=== PATIENT | female | born 1970 | race Caucasian/White ===

== ENCOUNTER → 2017-07-08 16:54 | Outpatient (CLI) | payer MEDICAID, SELFPAY ==
[2017-07-08 17:16] VITALS: BMI 25.2
== END ==
PROVIDERS: PCP Internal Medicine Adolescent Medicine; Visit Provider Nurse Practitioner Family
DX: Z23 Encounter for immunization (principal)
CPT/HCPCS: 90686

== ENCOUNTER → 2018-06-18 12:04 | Outpatient (CLI) | payer MEDICAID, SELFPAY ==
--- NOTE | 2018-06-18 12:08 | XR_ITS ---
EXAM: XR lumbar spine 2-3V HISTORY: ITS.REASON: back pain ORDERING PHYSICIAN: Jennifer Moore PATIENT AGE: 48 years COMPARISON: None FINDINGS: Mild levoscoliosis of the lower lumbar spine. Degenerative disc disease is present at L2 L3 L3 L4 L4 L5 and L5-S1. No fracture or dislocation. No lytic or blastic change. There is partial lumbarization of the S1 segment on the left. IMPRESSION: 1. Lumbar scoliosis with degenerative disc disease
[2018-06-18 12:59] LABS: Basophils % 0.4 % (0.1-2.0); Hematocrit 40.7 % (37.0-47.0); Hemoglobin 13.1 g/dL (12.2-16.2); Lymphocytes # 1.5 K/mm3 (0.7-4.5); Lymphocytes % 34.3 % (10-50); Mean Corpuscular HGB Conc 32.2 g/dL (31.8-35.4); Mean Corpuscular Hemoglobin 29.4 pg (27.0-31.2); Mean Corpuscular Volume 91.5 fl (81-99); Monocytes # 0.2 K/mm3 (0.1-1.0); Monocytes % 5.1 % (1.7-9.3); Neutrophils # 2.7 K/mm3 (1.8-7.8); Neutrophils % 59.2 % (37.0-80.0); Platelet Count 175 K/mm3 (142-424); Red Blood Count 4.45 M/mm3 (4.20-5.40); Red Cell Distribution Width 13.2 % (11.5-17.5); White Blood Count 4.5 K/mm3 (4.8-10.8)
[2018-06-18 13:06] LABS: Alanine Aminotransferase 22 U/L (12-78); Albumin Level 3.7 gm/dL (3.4-5.0); Albumin/Globulin Ratio 1.1 (1.1-1.8); Alkaline Phosphatase 46 U/L (46-116); Anion Gap 12.6 mEq/L (5-15); Aspartate Amino Transferase 14 U/L (15-37); Bilirubin,Total 0.7 mg/dL (0.2-1.0); Blood Urea Nitrogen 11 mg/dL (7-18); Calcium 8.6 mg/dL (8.5-10.1); Carbon Dioxide 26 mmol/L (21.0-32.0); Chloride 102 mmol/L (98-107); Chol/HDL Ratio 2.1 (1-3.5); Cholesterol 165 mg/dL (140-200); Creatinine,Serum 0.73 mg/dL (0.55-1.02); Estimated Glomerular Filt Rate 86 ml/min (>60); GFR (African American) 104 ML/MIN (>60); Globulin 3.5 gm/dl (1.3-3.2); Glucose 88 mg/dL (74-106); HDL Cholesterol 78 mg/dL (29-89); LDL Cholesterol 79 mg/dL (0-130); Potassium 3.6 mmoL/L (3.5-5.1); Sodium 137 mmol/L (136-145); T4 (Thyroxine) 8.7 ug/dl (4.7-13.3); Thyroid Stimulating Hormone 1.18 uIU/ml (0.358-3.740); Total Protein,Serum 7.2 gm/dL (6.4-8.2); Triglycerides 38 mg/dL (30-200); VLDL Cholesterol 8 mg/dL (0-40)
[2018-06-19 10:23] LABS: Hep A Ab, IgM Negative (Negative); Hepatitis B Core Antibody IgM Negative (Negative); Hepatitis B Surface Antigen Negative (Negative)
[2018-06-19 18:07] LABS: Hepatitis C Antibody <0.1 s/co ratio (0.0-0.9); Vitamin D 25 Hydroxy 25.6 ng/mL (30.0-100.0)
== END ==
PROVIDERS: PCP Emergency Medicine; Visit Provider Nurse Practitioner Family
DX: Z00.00 Encounter for general adult medical examination without abnormal findings (principal); M54.9 Dorsalgia, unspecified; R53.83 Other fatigue
CPT/HCPCS: 36415; 72100; 80053; 80061; 80074; 82652; 84436; 84443; 85025

== ENCOUNTER → 2018-07-15 09:25 | Outpatient (CLI) | payer OTHER, MEDICAID, SELFPAY ==
--- NOTE | 2018-07-15 09:30 | XR_ITS ---
XR finger RT min 2V CLINICAL INDICATION: Follow-up fracture/surgery ITS.REASON: Finger fx ORDERING PHYSICIAN: Natividad Granger MD PATIENT AGE: 48 years Comparison: 07/04/2018 FINDINGS: There has been an interval amputation at the DIP joint of the fourth digit. No bony erosive or lytic process is evident. Overlying bandage artifact noted. IMPRESSION: Status post amputation at the DIP joint of the fourth digit
== END ==
PROVIDERS: PCP Emergency Medicine; Visit Provider Orthopaedic Surgery
DX: S62.601A Fracture of unspecified phalanx of left index finger, initial encounter for closed fracture (principal)
CPT/HCPCS: 73140

== ENCOUNTER 2018-09-03 15:30 | Outpatient (RCR) | payer MEDICAID, SELFPAY ==
--- NOTE | 2018-07-28 16:23 | HMH.OTOPEV ---
OT Inpatient Evaluation Rehab OT Outpatient Eval Start: 07/28/18 16:10 Freq: Status: Active Protocol: Document 07/28/18 16:10 RMARSHALL (Rec: 07/28/18 16:23 ARSLOCUST GROVE [id number]) Electronically Signed By Chapis Pritchard OT 07/28/18 16:10 Outpatient Therapy Subjective History Subjective History Pt is a 48 year old female who reports to therapy for initial evaluation to right ring finger. Pt injured finger at work by slamming it in the door and slicing the tip of her finger off. This accident happedned on July 04, 2018. Pt received surgery for her injury the same day. Pt's finger is now healing and presents to therapy today with minimal AROM deficits at right ring finger. Pt has a 2cm scabbed area at the tip of the finger; the skin was inspected an no probelm areas were observed. 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
--- NOTE | 2018-08-25 16:15 | HMH.RHREAS ---
Rehab Reassessment Rehab OP Re-assessment Start: 08/25/18 16:07 Freq: Status: Active Protocol: Document 08/25/18 16:10 TAYA (Rec: 08/25/18 16:15 ARSHALL [id number]) Electronically Signed By Chapis Pritchard OT 08/25/18 16:10 Rehab Re-assessment Objective Objective Notes Pt is inconsistent about attending therapy sessions. Pt has not returned to therapy since initial evaluation. Today patient was passively ranged at right ring finger and soft tissue massage was applied to decrease swelling. Last, pt received an edema wrap with coban to right ring finger in order to control swelling. Assessment Progress Assessment Slower Than Expected Assessment Notes Pt demonstrates some improvement with AROM since initial evaluation even though she has not been attending therapy sessions. 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 Frequency of Therapy 1x a week Duration of therapy 2 more weeks Time and Billing Re-Eval Time 15 Re-Eval Billing Units 1 PHYSICIAN CERTIFICATION: I certify the specified therapy services for Xin Yao are required, authorized, and reviewed every 30 days.
== END 2018-09-03 15:35 | disposition home or self-care (01) ==
LOC: OT 15:30
PROVIDERS: Visit Provider Orthopaedic Surgery
DX: S68.119A Complete traumatic metacarpophalangeal amputation of unspecified finger, initial encounter (principal)
CPT/HCPCS: 97140; 97164; 97165

== ENCOUNTER 2019-08-12 11:00 | Outpatient (RCR) | payer OTHER, SELFPAY ==
--- NOTE | 2019-07-06 11:56 | HMH.PTOPEV ---
PT Outpatient Evaluation Rehab PT Outpatient Evaluation Start: 07/06/19 11:16 Freq: Status: Active Protocol: Document 07/06/19 11:45 FLORENCETRAVIS (Rec: 07/06/19 11:56 FLORENCEIRVINLANCE [id number]) Electronically Signed By Kirit Bird, PT 07/06/19 11:45 Outpatient Therapy Subjective History Subjective History Patient is a 49 year old female presenting to outpatient PT with reports of sub-acute low back pain starting approximately 1 month ago of insidious onset. No recent diagnostics to report. X-ray 06/2018 indicates mild lumbar degenerative changes and mild scoliosis. Comorbidities include R hand 4th digit amputation at DIP. Chief Complaint Pain Symptom Type Sharp,Shooting Symptoms Relieved By Activity Symptoms Aggravated By Sitting,Bending/Stooping, Lifting Prior Functional Limitations None Current Functional Limitations Lifting,Sitting,Bending/ Stooping Symptom Description Constant but Variable Level of pain today (0-10) 8 Pain scale - at its best (0-10) 3 Pain scale - at its worst (0-10) 9 Lumbopelvic Eval Posture Thoracic Spine Posture Standing Position Increased Kyphosis Lumbar Spine Posture Standing Position Increased Lordosis Assistive device Assistive Devices None / NA Palapation tenderness bilateral paraspinal tenderness Yes: L3-5 3/4 Accessory Movement L3 bilateral L4 bilateral L5 bilateral S1 bilateral Range of Motion Lumbar Spine ROM Reason Not Measured Within Functional Limits Manual Muscle Test Bilateral Knee Extension Strength Grade 5 Normal Knee Flexion Strength Grade 5 Normal Hip Flexion Strength Grade 5 Normal Extensor Hallucis Longus Strength Grade 5 Normal Ankle Dorsiflexion Strength Grade 5 Normal Gastronemius/Soleus Strength Grade 5 Normal DTR Rt Patellar 2+ Lt Patellar 2+ Rt Gastroc/Soleus 2+ Lt Gastroc/Soleus 2+ Special Tests Lumbar Spine Screen Positive Hip Colin (GABBIE) Test Positive Left,Positive Right Hip Daphne Test Positive Left,Positive Right Hip Piriformis Test Positive Left,Positive Right Sciatic Nerve Tension Test Negative Left,Negative Right Zafar Test Positive Sacroiliac Joint Compression Test N
== END 2019-08-12 11:05 | disposition home or self-care (01) ==
LOC: PT 11:00
PROVIDERS: Visit Provider Nurse Practitioner Family
DX: M54.9 Dorsalgia, unspecified (principal)
CPT/HCPCS: 97010; 97014; 97033; 97035; 97110; 97163; G0283

== ENCOUNTER → 2020-07-08 15:10 | Outpatient (CLI) | payer OTHER, SELFPAY | PROVIDERS: PCP Nurse Practitioner Family; Visit Provider Nurse Practitioner Family | DX: Z20.822 Contact with and (suspected) exposure to COVID-19 (principal) | CPT/HCPCS: U0003 ==

== ENCOUNTER → 2020-08-24 10:46 | Outpatient (CLI) | payer OTHER, SELFPAY ==
--- NOTE | 2020-08-24 10:46 | MM_ITS ---
PROCEDURE: MM DIG SCREENING MAMM BI W/CAD Digital Breast Tomosynthesis Included CLINICAL INDICATION: Breast cancer screening There is no personal or family history of breast cancer. COMPARISON: MG DMDXUAVR DIG MAMM-DX UNIL ADD VIEWS-RT from 10/22/2012 MG DMDXUR DIG MAMM-DX UNI-RT from 04/23/2013 MG DMDB DIG MAMM-DX GERONIMO from 01/28/2014 TECHNIQUE: Standard CC and MLO images and 3D Tomosynthesis was obtained. R2 CAD reviewed. FINDINGS: There is a diffusely dense and heterogenic parenchymal pattern. Darwin images are most helpful in this type of dense breast parenchyma. There are few benign-appearing microcalcifications right breast. There is a suspicious lesion and no suspicious microcalcifications. IMPRESSION: Moderately dense and heterogenic breast parenchyma with no suspicious lesions seen BI-RAD Category: 1 Negative FOLLOW-UP: 1YR 1 Year Follow-up (A letter has been sent to the patient regarding results of the study.) Dictated by: Dr. Jeff Paz MD 08/29/2020 10:04 Dr. Jeff Paz MD in [place] 08/29/2020 10:04
== END ==
PROVIDERS: PCP Nurse Practitioner Family; Visit Provider Physician Assistant
DX: Z12.31 Encounter for screening mammogram for malignant neoplasm of breast (principal)
CPT/HCPCS: 77063; 77067

== ENCOUNTER 2022-11-02 08:57 | Emergency (ER) | payer OTHER, SELFPAY ==
[2022-11-02 08:58] VITALS: BP 137/83; PULSE 71; RESP 18; TEMP 36.7; O2SAT 99; BMI 27.8
--- NOTE | 2022-11-02 09:12 | XR_ITS ---
PROCEDURE INFORMATION: Exam: XR Right Tibia and Fibula Exam date and time: 11/02/2022 9:25 AM Age: 52 years old Clinical indication: Pain; Lower leg; Right; Additional info: Pain and swelling TECHNIQUE: Imaging protocol: Radiologic exam of the right tibia and fibula. Views: 2 views. COMPARISON: No relevant prior studies available. FINDINGS: Bones/joints: No acute bony injury or malalignment in the visualized right lower leg. Mild degenerative change. Soft tissues: Anterior soft tissue swelling and punctate subcutaneous calcifications. Vasculature: Superficial venous varicosities. IMPRESSION: Anterior soft tissue swelling, without acute bony injury.
--- NOTE | 2022-11-02 09:43 | EXP.UTC ---
Discharge Plan Disposition Patient Disposition: Home, Self-Care Condition: Good Prescriptions Prescriptions: New cephalexin [cephalexin] 500 mg tablet 500 mg PO BID 7 Days Qty: 14 0RF Referrals Follow up/Referrals: Epi Davis MD [Primary Care Provider] - See instructions Activity Restrictions/Add. Instructions Additional Instructions/Restrictions: watch for swelling if redness worsens return follow up with pcp Clinical Impressions Clinical Impression: Cellulitis Instructions Patient Instructions: Cellulitis Discharge ED [facility]enn[facility] [place] HPI General Stated complaint: RT leg pain no known accident Mode of Arrival: Ambulatory Source of Information: Patient Limitations: No Limitations Time Seen by Provider: 11/02/22 09:47 Description of Symptoms (Recalled from Triage Doc. by RN): Right leg has been hurting for a week, is swollen, and has sharp pain going down corona. HEENT Symptoms (Recalled from RN notes): No Resp Symptoms (Recalled from RN notes): No Skin Symptoms (Recalled from RN notes): Yes MS Symptoms (Recalled from RN notes): No Functional Status (Recalled from RN notes): n/a History of Present Illness Provider Complaint: 52 yr old female presents for rt leg pain and swelling. pt states for a week she has had swelling to the chin and painful Related Data Previous Rx's Medication Instructions Recorded cephalexin 500 mg tablet 500 mg PO BID 7 days #14 tabs 11/02/22 Allergies Allergy/AdvReac Type Severity Reaction Status Date / Time No Known Allergies Allergy Verified 11/02/22 09:18 Worker's Comp Is this a Worker's Comp case?: No [facility] Disclaimer: The information contained in this section may have been updated after the patient was seen, as this information can be updated by other users. 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) Smoking Status: Former smoker alcohol intake: never substance use type: denies use current occupational status: employed Travel in the last 8 weeks: None household members: family housing: house ROS Obtained: Yes All systems reviewed & no additional complaints except as documented Constitutional Constitutional: Reports system reviewed and no additional complaints, except as documented Eyes Eyes: Reports system reviewed and no additional complaints, except as documented ENT Ears, Nose, Mouth, and Throat: Reports system reviewed and no additional complaints, except as documented Cardiovascular Cardiovascular: Reports system reviewed and no additional complaints, except as documented Respiratory Respiratory: Reports system reviewed and no additional complaints, except as documented Gastrointestinal Gastrointestingal: Reports system reviewed and no additional complaints, except as documented Musculoskeletal Musculoskeletal: Reports system reviewed and no additional complaints, except as documented Integumentary/Breasts Skin/Breast: Reports system reviewed and no additional complaints, except as documented and Reports as per HPI Neurologic Neurologic: Reports system reviewed and no additional complaints, except as documented Endocrine Endocrine: Reports system reviewed and no additional complaints, except as documented Hematologic/Lymphatic Henatologic/Lymphatic: Reports system reviewed and no additional complaints, except as documented Allergic/Immunologic Allergic/Immunologic: Reports system reviewed and no additional complaints, except as documented Physical Exam General General appearance: alert and in no apparent distress Head Head exam: atraumatic Eye Eye exam: Present normal appearance and PERRL ENT ENT exam: Present normal exam and normal oropharynx Neck Neck exam: Present full ROM Respiratory Respiratory exam: Present normal lung sounds bilaterally Cardiovascular Cardiovascular exam: Present regular rate and normal rhythm Expanded Lower Extremity Exam Right:
[2022-11-02 10:13] VITALS: BP 137/83; PULSE 71; RESP 18; TEMP 36.7; O2SAT 99
== END 2022-11-02 10:12 | disposition home or self-care (01) ==
PROVIDERS: Emergency Provider Nurse Practitioner Family; PCP Emergency Medicine
DX: L03.115 Cellulitis of right lower limb (principal); Z87.891 Personal history of nicotine dependence
CPT/HCPCS: 73590; 99204; 99212; G0463

== ENCOUNTER 2022-11-07 20:26 | Emergency (ER) | payer OTHER, SELFPAY ==
[2022-11-07 20:28] VITALS: BP 126/71; PULSE 90; RESP 16; TEMP 37.7; O2SAT 100; BMI 27.8
[2022-11-07 21:41] VITALS: BP 110/74; PULSE 88; O2SAT 94
[2022-11-07 21:42] LABS: Basophils % 0.4 % (0.1-2.0); Eosinophils # 0.1 K/mm3 (0.0-0.4); Eosinophils % 1.2 % (0.1-12.0); Hematocrit 27.3 % (37.0-47.0); Lymphocytes # 1.8 K/mm3 (0.7-4.5); Lymphocytes % 27.4 % (10-50); Mean Corpuscular HGB Conc 29.2 g/dL (31.8-35.4); Mean Corpuscular Hemoglobin 19.1 pg (27.0-31.2); Mean Corpuscular Volume 65.3 fl (81-99); Mean Platelet Volume 7.8 fl (7.4-10.4); Monocytes # 0.5 K/mm3 (0.1-1.0); Monocytes % 8.4 % (1.7-9.3); Neutrophils % 62.5 % (37.0-80.0); Platelet Count 283 K/mm3 (142-424); Red Blood Count 4.18 M/mm3 (4.20-5.40); Red Cell Distribution Width 17.9 % (11.5-17.5); White Blood Count 6.4 K/mm3 (4.8-10.8)
[2022-11-07 21:48] LABS: Chloride 100 mmol/L (98-107)
[2022-11-07 21:49] LABS: Potassium 3.2 mmoL/L (3.5-5.1); Sodium 139 mmol/L (136-145)
[2022-11-07 21:51] LABS: Blood Urea Nitrogen 8 mg/dl (7-17); Creatinine Clearance Estimated 122 mL/min (50-200); Estimated Glomerular Filt Rate 106 ml/min (>60); GFR (African American) 128 ML/MIN (>60); Lactic Acid 1.2 mmol/L (0.7-2.1)
[2022-11-07 21:52] LABS: Alanine Aminotransferase 15 U/L (12-78); Albumin Level 4.2 g/dl (3.5-5.0); Albumin/Globulin Ratio 1.4 (1.1-1.8); Alkaline Phosphatase 84 U/L (38-126); Anion Gap 15.2 mEq/L (5-15); Aspartate Amino Transferase 22 U/L (14-36); Bilirubin,Total 0.5 mg/dl (0.2-1.3); Calcium 9.2 mg/dl (8.4-10.2); Carbon Dioxide 27 mmol/L (22.0-30.0); Glucose 95 mg/dl (74-100); Total Protein,Serum 7.2 g/dl (6.3-8.2)
[2022-11-07 22:00] VITALS: BP 109/61; PULSE 77; O2SAT 100
--- NOTE | 2022-11-07 22:04 | PC.NURSE ---
Rounded on pt. Pt provided with warm blanket.
--- NOTE | 2022-11-07 22:09 | PC.NURSE ---
Dr. Davis at to speak with pt
--- NOTE | 2022-11-07 22:14 | HMH.EDSKAF ---
Discharge Plan Disposition Patient Disposition: Home, Self-Care Prescriptions Prescriptions: No Action cephalexin [cephalexin] 500 mg tablet 500 mg PO BID 7 Days Qty: 14 0RF Referrals Follow up/Referrals: Epi Davis MD [Primary Care Provider] - See instructions Clinical Impressions Clinical Impression: Cellulitis Instructions Patient Instructions: Cellulitis Discharge ED Provider: Susan (ED)Epi Skin/Abscess/FB HPI General Chief complaint: Skin/Abscess/Foreign Body Stated complaint: Swelling in right leg Time Seen by Provider: 11/07/22 22:14 Mode of Arrival: Ambulatory Source of Information: Patient Limitations: No Limitations Description of Symptoms (Recalled from ER Triage Doc. by RN): pt states was seen in [facility] on friday and diganosed with cellutitis and place on keflex. pt was then seen in [facility] today. pt states Md wanted to do a doppler on extermity to check for blood clot. pt c/o rt lower leg swelling, redness,warmth History of Present Illness HPI narrative: pt with swelling and warmth rt lower leg over ths past week - has been seen at [facility] and [facility]- on abx - no other c/o MD complaint: other (rt lower leg swelling ) Onset (ago): day(s) Location: RLE Severity: moderate Consistency: intermittent Associated symptoms: denies other symptoms Treatments prior to arrival: antibiotic Related Data Previous Rx's Medication Instructions Recorded cephalexin 500 mg tablet 500 mg PO BID 7 days #14 tabs 11/02/22 Allergies Allergy/AdvReac Type Severity Reaction Status Date / Time No Known Allergies Allergy Verified 11/02/22 09:18 [facility] Disclaimer: The information contained in this section may have been updated after the patient was seen, as this information can be updated by other users. 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) Smoking Status: Never smoker alcohol intake: never substance use type: denies use current occupational status: employed Travel in the last 8 weeks: None household members: family housing: house ROS Obtained: Yes All systems reviewed & no additional complaints except as documented Physical Exam General General appearance: alert Head Head exam: normocephalic Eye Eye exam: Present PERRL and EOMI ENT ENT exam: Present mucous membranes moist Neck Neck exam: Present trachea midline Respiratory Respiratory exam: Absent respiratory distress Cardiovascular Cardiovascular exam: Present regular rate Extremities Exam Extremities exam: Present calf tenderness and other (rt lower leg with reddness and swelling - pos homans ) Neurological Exam Neurological exam: Present alert, oriented X3 and CN II-XII intact; Absent motor sensory deficit Psychiatric Psychiatric exam: Present normal affect Skin Skin exam: Absent rash Medical Decision Making Medical Records Medical records reviewed: Yes I reviewed the patient's medical records. Loco Inquiry Pt receiving controlled substance: No Vital Signs: 11/07/22 20:28 11/07/22 21:41 11/07/22 22:00 Temperature 99.8 F H Temperature Source Oral Pulse Rate 88 77 Pulse Rate [Right] 90 Respiratory Rate 16 Blood Pressure 110/74 109/61 L Blood Pressure [Right Arm] 126/71 Blood Pressure Mean [Right Arm] 89 02 Sat by Pulse Oximetry 100 94 L 100 Oxygen Delivery Method Room Air Room Air 11/07/22 22:30 11/07/22 23:31 Temperature 98.5 F Temperature Source Pulse Rate 74 76 Pulse Rate [Right] Respiratory Rate 20 Blood Pressure 119/65 109/60 L Blood Pressure [Right Arm] Blood Pressure Mean [Right Arm] 02 Sat by Pulse Oximetry 100 Oxygen Delivery Method Room Air Lab Data Lab results reviewed: Yes I reviewed the patient's lab results. Lab Results 11/07/22 21:30: WBC 6.4, RBC 4.18 L, Hgb 8.0 L, Hct 27.3 L, MCV 65.3 L, MCH 19.1 L, MCHC 29.2 L, RDW 17.9 H, Plt Count 283, MPV 7.8, Neut % (Auto) 62.5, Lymph % (Auto) 27.4, M
[2022-11-07 22:16] LABS: Erythrocyte Sedimentation Rate 33 mm/hr (0-20)
[2022-11-07 22:28] LABS: Procalcitonin 0.046 ng/mL (0.0-2.0)
[2022-11-07 22:30] VITALS: BP 119/65; PULSE 74; O2SAT 100
[2022-11-07 22:39] LABS: C-Reactive Protein 32.9 mg/L (0-4)
--- NOTE | 2022-11-07 22:47 | PC.NURSE ---
Pt ambulatory to bathroom. No needs voiced.
[2022-11-07 23:31] VITALS: BP 109/60; PULSE 76; RESP 20; TEMP 36.9
== END 2022-11-07 23:31 | disposition home or self-care (01) ==
PROVIDERS: Emergency Provider Emergency Medicine; PCP Emergency Medicine
DX: L03.115 Cellulitis of right lower limb (principal)
CPT/HCPCS: 80053; 83605; 84145; 85025; 85651; 86140; 87040; 96361; 96374; 96375; 99284; 99285

== ENCOUNTER → 2022-11-08 10:33 | Outpatient (CLI) | payer OTHER, SELFPAY ==
--- NOTE | 2022-11-08 10:36 | CA_ITS ---
FINAL REPORT TECHNIQUE: Ultrasound images of the deep venous system were obtained from the right groin to the calf veins. CLINICAL HISTORY: Cellulitis of right lower leg, Large varicosities FINDINGS: The deep venous system is normally compressible. Normal flow is identified. There is a superficial varicosity in the popliteal region which does not compress consistent with superficial thrombus. IMPRESSION: No evidence of right lower extremity DVT. Superficial thrombus in the right popliteal region. Dr. Davis was notified of these findings at the time of the exam. Reviewed, Interpreted and Dictated by Tyler Aparicio MD Transcribed by Ngozi Matamoros Authenticated and [facility]
== END ==
PROVIDERS: PCP Emergency Medicine; Visit Provider Emergency Medicine
DX: M79.661 Pain in right lower leg (principal); R22.41 Localized swelling, mass and lump, right lower limb; L03.115 Cellulitis of right lower limb
CPT/HCPCS: 93971

== ENCOUNTER → 2022-11-25 10:43 | Outpatient (CLI) | payer OTHER, SELFPAY ==
--- NOTE | 2022-11-25 10:47 | US_ITS ---
FINAL REPORT CLINICAL HISTORY: Right lower extremity pain, patient sensitive to touch on RLE, bilateral claudication FINDINGS: ANKLE-BRACHIAL PRESSURE INDICES Pressure indices are as follows: RIGHT LOWER EXTREMITY: Ankle-brachial pressure index: 1.24 Comments: Normal LEFT LOWER EXTREMITY: Ankle-brachial pressure index: 1.14 Comments: Normal IMPRESSION: No evidence of significant obstructive peripheral vascular disease of the lower extremities Reviewed, Interpreted and Dictated by Tyler Aparicio MD Transcribed by Dilcia Clement Authenticated and [facility]
== END ==
PROVIDERS: PCP Emergency Medicine; Visit Provider Nurse Practitioner Family
DX: I70.213 Atherosclerosis of native arteries of extremities with intermittent claudication, bilateral legs (principal); M79.661 Pain in right lower leg
CPT/HCPCS: 93923

== ENCOUNTER → 2023-01-16 10:48 | Outpatient (CLI) | payer OTHER, SELFPAY ==
--- NOTE | 2023-01-16 10:53 | CT_ITS ---
FINAL REPORT TECHNIQUE: Thin section axial CT images with coronal and sagittal reformats were performed of the right lower leg. 3D reformatted images were also obtained. This study was performed with techniques to keep radiation doses as low as reasonably achievable (ALARA). Individualized dose reduction techniques using automated exposure control or adjustment of mA and/or kV according to the patient''s size were employed. CLINICAL HISTORY: RIGHT LOWER LEG PAIN FINDINGS: There are no fractures. There are no masses or fluid collections. Musculature is intact. There are no soft tissue abnormalities. Note is made of venous varicosities. IMPRESSION: No acute bony abnormality. Reviewed, Interpreted and Dictated by Arnie Swain III, MD Transcribed by Dilcia Clement Authenticated and [facility]
== END ==
PROVIDERS: PCP Emergency Medicine; Visit Provider Nurse Practitioner Family
DX: M79.604 Pain in right leg (principal); M79.89 Other specified soft tissue disorders
CPT/HCPCS: 73700